=== PATIENT | female | born 1985 | race Caucasian/White ===

== ENCOUNTER 2019-03-26 09:21 | Emergency (ER) | payer MEDICAID, OTHER ==
[~2019-03-26] VITALS: Ht 165.1 cm; Wt 80.0 kg
[~2019-03-26 09:21] MED LIST: GABA100C PO; GUAI474L3 PO; HYDR-4383 PO; MEDR150V IM
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
[2019-03-26] MEDS ORDERED: orphenadrine citrate 60mg/2ml inj. IM ONE (10:55)
[2019-03-26] MEDS ORDERED: HYDR-4353 PO (10:55)
[2019-03-26] MEDS ORDERED: HYDROcodone/acetaminophen 10/325mg tab PO ONE (10:55)
[2019-03-26] MEDS ORDERED: ORPH100T2 PO (10:55)
[2019-03-26 11:24] VITALS: BP 122/64
== END 2019-03-26 11:27 | disposition home or self-care (01) ==
LOC: ER 09:22
DX: S09.90XA Unspecified injury of head, initial encounter (principal); J45.909 Unspecified asthma, uncomplicated; F17.200 Nicotine dependence, unspecified, uncomplicated; F12.10 Cannabis abuse, uncomplicated; Z56.0 Unemployment, unspecified; Z88.0 Allergy status to penicillin; Z86.14 Personal history of Methicillin resistant Staphylococcus aureus infection; Y08.89XA Assault by other specified means, initial encounter; Y93.89 Activity, other specified; Y92.69 Other specified industrial and construction area as the place of occurrence of the external cause; Y99.8 Other external cause status
CPT/HCPCS: 96372; 99283; J2360

== ENCOUNTER 2020-03-07 14:07 | Emergency (ER) | payer MEDICAID, OTHER ==
[~2020-03-07] VITALS: Ht 167.6 cm; Wt 87.0 kg
[~2020-03-07 14:07] MED LIST changes: +ORPH100T2 PO
--- NOTE | 2020-03-07 15:09 | NUR ---
ASSISTED DR LOUISE WITH PELVIC EXAMINE, PT NEHEMIAS WELL, ONE LARGE CLOT REMOVED, MINIMAL BLEEDING
[2020-03-07 15:32] LABS: BASOPHILS # (AUTO) 0.1 X10'3 (0-0.2); BASOPHILS % (AUTO) 0.6 % (0-1); EOSINOPHILS # (AUTO) 0.2 X10'3 (0-0.9); HEMATOCRIT 37.5 % (35.0-45.0); HEMOGLOBIN 12.5 g/dl (12.0-16.0); LYMPHOCYTES # (AUTO) 1.4 X10'3 (1.1-4.8); LYMPHOCYTES % (AUTO) 15.2 % (21-51); MEAN CORPUSCULAR HEMOGLOBIN 28.8 PG (27.0-31.0); MEAN CORPUSCULAR HGB CONC 33.2 g/dL (33.0-36.5); MEAN CORPUSCULAR VOLUME 86.6 FL (78-98); MEAN PLATELET VOLUME 8.2 FL (7.4-10.4); MONOCYTES # (AUTO) 0.6 X10'3 (0-0.9); MONOCYTES % (AUTO) 6.9 % (2-12); NEUTROPHILS # (AUTO) 6.9 X10'3 (1.8-7.7); NEUTROPHILS % (AUTO) 75.3 % (42-75); PLATELET COUNT 286 X10'3 (140-440); RED BLOOD COUNT 4.34 X10'6 (4.20-5.60); RED CELL DISTRIBUTION WIDTH 13.7 % (11.5-14.5); WHITE BLOOD COUNT 9.2 X10'3 (4.5-11.0)
[2020-03-07 16:28] VITALS: BP 130/76
== END 2020-03-07 16:30 | disposition home or self-care (01) ==
LOC: ER 14:08
DX: N93.9 Abnormal uterine and vaginal bleeding, unspecified (principal); R42 Dizziness and giddiness; J45.909 Unspecified asthma, uncomplicated; F12.90 Cannabis use, unspecified, uncomplicated; Z86.69 Personal history of other diseases of the nervous system and sense organs; Z86.14 Personal history of Methicillin resistant Staphylococcus aureus infection; Z98.890 Other specified postprocedural states; Z56.0 Unemployment, unspecified; Z88.0 Allergy status to penicillin; Z88.6 Allergy status to analgesic agent; Z79.899 Other long term (current) drug therapy
CPT/HCPCS: 36415; 84702; 85025; 99283

== ENCOUNTER 2020-09-29 22:59 | Emergency (ER) | payer MEDICAID ==
[~2020-09-29] VITALS: Ht 167.6 cm; Wt 83.6 kg
[2020-09-30 00:04] VITALS: BP 102/66
== END 2020-09-30 01:00 | disposition home or self-care (01) ==
LOC: ER 22:59
DX: R56.9 Unspecified convulsions (principal); J45.909 Unspecified asthma, uncomplicated; F12.90 Cannabis use, unspecified, uncomplicated; Z56.0 Unemployment, unspecified; Z86.14 Personal history of Methicillin resistant Staphylococcus aureus infection; Z88.0 Allergy status to penicillin; Z88.6 Allergy status to analgesic agent; G43.909 Migraine, unspecified, not intractable, without status migrainosus
CPT/HCPCS: 99283

== ENCOUNTER 2021-06-22 09:02 | Emergency (ER) | payer MEDICAID ==
[~2021-06-22] VITALS: Ht 167.6 cm; Wt 83.6 kg
[2021-06-22 09:04] VITALS: BP 116/83
== END 2021-06-22 09:45 | disposition home or self-care (01) ==
LOC: ER 09:03
DX: U07.1 COVID-19 (principal); J06.9 Acute upper respiratory infection, unspecified; B97.89 Other viral agents as the cause of diseases classified elsewhere; J45.909 Unspecified asthma, uncomplicated; F12.90 Cannabis use, unspecified, uncomplicated; Z86.14 Personal history of Methicillin resistant Staphylococcus aureus infection; Z86.69 Personal history of other diseases of the nervous system and sense organs; Z72.89 Other problems related to lifestyle; Z56.0 Unemployment, unspecified; Z88.0 Allergy status to penicillin; Z88.6 Allergy status to analgesic agent; Z79.899 Other long term (current) drug therapy
CPT/HCPCS: 36415; 99283; U0003; U0005

== ENCOUNTER 2022-11-26 20:58 | Emergency (ER) | payer MEDICAID ==
[~2022-11-26] VITALS: Ht 167.6 cm; Wt 80.5 kg
[2022-11-26 21:15] VITALS: BP 139/88
[2022-11-26] MEDS ORDERED: bacitracin 15gm ointment TP ONE (21:40)
== END 2022-11-26 21:59 | disposition home or self-care (01) ==
LOC: ER 20:59
DX: T23.271A Burn of second degree of right wrist, initial encounter (principal); J45.909 Unspecified asthma, uncomplicated; F12.90 Cannabis use, unspecified, uncomplicated; Z86.69 Personal history of other diseases of the nervous system and sense organs; Z86.14 Personal history of Methicillin resistant Staphylococcus aureus infection; Z98.890 Other specified postprocedural states; Z72.89 Other problems related to lifestyle; Z56.0 Unemployment, unspecified; Z88.0 Allergy status to penicillin; Z88.6 Allergy status to analgesic agent; Z79.899 Other long term (current) drug therapy; X08.8XXA Exposure to other specified smoke, fire and flames, initial encounter; Y93.89 Activity, other specified; Y92.89 Other specified places as the place of occurrence of the external cause; Y99.8 Other external cause status
CPT/HCPCS: 16020; 99284; A6258

== ENCOUNTER 2023-11-10 22:30 | Emergency (ER) | payer MEDICAID, OTHER ==
[~2023-11-10] VITALS: Ht 167.6 cm; Wt 81.8 kg
[~2023-11-10 22:30] MED LIST changes: -ORPH100T2 PO; +ORPH100T4 PO
[2023-11-10 22:35] VITALS: BP 152/80; PULSE 90; RESP 17; TEMP 98.7; O2SAT 96
== END 2023-11-10 23:46 | disposition home or self-care (01) ==
LOC: ER 22:31
DX: S33.5XXA Sprain of ligaments of lumbar spine, initial encounter (principal); J45.909 Unspecified asthma, uncomplicated; F17.210 Nicotine dependence, cigarettes, uncomplicated; V89.2XXA Person injured in unspecified motor-vehicle accident, traffic, initial encounter; Y93.89 Activity, other specified; Y92.89 Other specified places as the place of occurrence of the external cause; Y99.8 Other external cause status
CPT/HCPCS: 99282

== ENCOUNTER 2024-03-09 19:34 | Emergency (ER) | payer MEDICAID, OTHER ==
[~2024-03-09] VITALS: Ht 167.6 cm; Wt 75.0 kg
[2024-03-09 19:43] VITALS: BP 164/110; PULSE 81; TEMP 98.4; O2SAT 99
[2024-03-09 21:22] LABS: BASOPHILS # (AUTO) 0.1 X10'3 (0-0.2); BASOPHILS % (AUTO) 0.6 % (0-1); EOSINOPHILS # (AUTO) 0.2 X10'3 (0-0.9); EOSINOPHILS % (AUTO) 2.1 % (0-6); HEMATOCRIT 38.8 % (35.0-45.0); LYMPHOCYTES # (AUTO) 2.3 X10'3 (1.1-4.8); LYMPHOCYTES % (AUTO) 24.9 % (21-51); MEAN CORPUSCULAR HEMOGLOBIN 29.8 PG (27.0-31.0); MEAN CORPUSCULAR HGB CONC 33.5 g/dL (33.0-36.5); MEAN PLATELET VOLUME 8.1 FL (7.4-10.4); MONOCYTES # (AUTO) 0.7 X10'3 (0-0.9); MONOCYTES % (AUTO) 7.2 % (2-12); NEUTROPHILS % (AUTO) 65.2 % (42-75); PLATELET COUNT 268 X10'3 (140-440); RED BLOOD COUNT 4.36 X10'6 (4.20-5.60); RED CELL DISTRIBUTION WIDTH 13.4 % (11.5-14.5); WHITE BLOOD COUNT 9.2 X10'3 (4.5-11.0)
[2024-03-09 21:38] LABS: ALANINE AMINOTRANSFERASE 25 U/L (12-78); ALBUMIN 3.6 G/DL (3.4-5.0); ALBUMIN/GLOBULIN RATIO 0.9 (1.1-1.5); ALKALINE PHOSPHATASE 44 IU/L (46-116); ANION GAP 7 (8-16); ASPARTATE AMINO TRANSFERASE 23 U/L (10-37); BILIRUBIN,TOTAL 0.3 MG/DL (0.1-1.0); BLOOD UREA NITROGEN 13 MG/DL (7-18); BUN/CREATININE RATIO 18.6 (10.0-20.0); CALCIUM 8.8 MG/DL (8.5-10.1); CHLORIDE 102 MMOL/L (99-107); GLUCOSE 82 MG/DL (70-104); LIPASE 22 U/L (16-77); POTASSIUM 3.7 MMOL/L (3.5-5.1); SODIUM 135 MMOL/L (135-145); TOTAL CARBON DIOXIDE 26.5 MMOL/L (24-32); TOTAL PROTEIN 7.4 G/DL (6.4-8.2); eCRCL 100 ML/MIN; eGFR > 90 ML/MIN
[2024-03-09 23:11] LABS: APTT 25 SECONDS (22-32); INR 0.9 INR; PROTHROMBIN TIME 9.8 SECONDS (9.0-12.0)
[2024-03-09 23:13] LABS: BASOPHILS # (AUTO) 0.1 X10'3 (0-0.2); BASOPHILS % (AUTO) 0.6 % (0-1); EOSINOPHILS # (AUTO) 0.2 X10'3 (0-0.9); EOSINOPHILS % (AUTO) 2.5 % (0-6); HEMATOCRIT 41.1 % (35.0-45.0); HEMOGLOBIN 13.9 g/dl (12.0-16.0); LYMPHOCYTES # (AUTO) 2.2 X10'3 (1.1-4.8); LYMPHOCYTES % (AUTO) 24.5 % (21-51); MEAN CORPUSCULAR HEMOGLOBIN 29.7 PG (27.0-31.0); MEAN CORPUSCULAR HGB CONC 33.7 g/dL (33.0-36.5); MEAN CORPUSCULAR VOLUME 88.3 FL (78-98); MONOCYTES # (AUTO) 0.6 X10'3 (0-0.9); MONOCYTES % (AUTO) 6.5 % (2-12); NEUTROPHILS % (AUTO) 65.9 % (42-75); PLATELET COUNT 291 X10'3 (140-440); RED BLOOD COUNT 4.66 X10'6 (4.20-5.60); RED CELL DISTRIBUTION WIDTH 13.1 % (11.5-14.5)
[2024-03-09] MEDS ORDERED: ONDA4TAB12 PO (23:35)
[2024-03-09] MEDS ORDERED: DICY10CA88 PO (23:35)
[2024-03-09] MEDS: normal saline 1000ml 1,000 ML IV ONE (23:42)
[2024-03-09] MEDS: diphenhydrAMINE 50 mg/ml inj IV ONE (23:42)
[2024-03-09] MEDS: metoclopramide 5 mg/ml inj IV ONE (23:42)
[2024-03-09 23:47] VITALS: RESP 16
[2024-03-09] MEDS: HYDROcodone/acetaminophen 5mg/325mg tablet PO ONE (23:47)
[2024-03-09] MEDS: ondansetron/PF 4mg/2ml inj IV ONE (23:47)
== END 2024-03-10 00:54 | disposition home or self-care (01) ==
LOC: ER 19:35
DX: K29.00 Acute gastritis without bleeding (principal); J45.909 Unspecified asthma, uncomplicated; F12.90 Cannabis use, unspecified, uncomplicated; Z88.0 Allergy status to penicillin; Z88.1 Allergy status to other antibiotic agents; Z79.899 Other long term (current) drug therapy
CPT/HCPCS: 36415; 76700; 80053; 80320; 83605; 83690; 85025; 85610; 85730; 87040; 96361; 96374; 99285; J2405; J7030

== ENCOUNTER 2025-06-19 02:26 | Emergency (ER) | payer MEDICAID, OTHER ==
[~2025-06-19] VITALS: Ht 165.1 cm; Wt 81.8 kg
[~2025-06-19 02:26] MED LIST changes: +ONDA-243 PO
[2025-06-19 02:27] VITALS: BP 165/101; PULSE 120; RESP 18; TEMP 98; O2SAT 94
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
== END 2025-06-19 03:27 ==
LOC: ER 02:26
DX: Z65.3 Problems related to other legal circumstances (principal); J45.909 Unspecified asthma, uncomplicated; Z88.0 Allergy status to penicillin; Z88.6 Allergy status to analgesic agent; Z88.8 Allergy status to other drugs, medicaments and biological substances; V43.52XA Car driver injured in collision with other type car in traffic accident, initial encounter; Y93.89 Activity, other specified; Y92.89 Other specified places as the place of occurrence of the external cause; Y99.8 Other external cause status
CPT/HCPCS: 99283

== ENCOUNTER 2025-09-04 22:50 | Emergency (ER) | payer OTHER ==
[~2025-09-04] VITALS: Ht 167.6 cm; Wt 80.0 kg
[2025-09-04 23:15] VITALS: BP 126/90; PULSE 76; RESP 18; O2SAT 97
--- NOTE | 2025-09-04 23:27 | Physician Documentation ---
History of Present Illness ~ Chief Complaint: Eye Pain Stated Complaint: R EYE PAIN Time Seen by MD: 23:21 OK to notify your PCP?: Yes Primary Medical Doctor: NONE Source: patient Mode of Arrival: POV Exam Limitations: no limitations HPI Reports she felt a particle fallen to her right eye a few days ago and she flushed her eye out with saline flush at home. She reports that she was staying in a hotel the night prior. She reports that this morning she woke up and her eye was crusted shut. Reports occasional blurry vision in this eye. No symptoms with the left eye. Medication Reconciliation Allergies: Coded Allergies: Penicillins (Unverified Allergy, Unknown, 06/19/25) ibuprofen (Unverified Allergy, Unknown, 06/19/25) Scheduled Ciprofloxacin Hcl Ophth* (Ciloxan 0.35 Ophth Drops*), 1 DROP RIGHTEYE Q6H Gabapentin (Neurontin), 1 CAP PO BID, (Reported) Hydrocodone/Acetaminophen ([place] 5-325 Tablet), 1 TAB PO Q6H Medroxyprogesterone Acetate (Depo-Provera), 150 MG IM [id number], (Reported) Orphenadrine Citrate (Norflex), 1 TAB PO Q12H PRN Scheduled PRN Guaifen/D-Methorphan Hb/K Cit (Sorbutuss Liquid), 5 ML PO Q4H PRN for cough ONDANSETRON ODT 4mg tablet (Ondansetron Odt), 1 TAB PO Q6H PRN PRN for nausea/vomiting Past Medical History Past Medical History: Seizures, Asthma, MRSA Abscess Past Surgical History: other Alcohol Use: Occasionally Drug Use: marijuana Lives with: Family Lives In: Home Occupation: unemployed Physical Exam Vital Signs: RN Vital Signs have been reviewed: Yes, Temperature: 97.3, Source: Temporal, Heart Rate: 76, Respiratory Rate: 18, BP: 126/90, Pulse Oximetry: 97, Weight: 80.000 Pulse Oximetry Reflects: adequate oxygenation Physical Exam General: Alert, no distress. HEENT: moist mucous membranes. Conjunctiva injected with white stringy thing drainage present on eyelashes. Fluorescein uptake to lateral portion of right eye in the 9 o'clock position. PERRLA, EOMI. Neck: Full range of motion. Respiratory: No respiratory distress, equal chest rise and fall. Chest: No accessory muscle use. Cardiovascular: Regular rate and rhythm. Gastrointestinal: Nondistended. Extremities: Normal range of motion, no deformity. Neurologic: Oriented x4. Psychiatric: Normal mood and affect. Skin: Normal color, warm and dry. 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 Proparacaine Ophth Solution (Alcaine Oph (09/04/25 23:55) Fluorescein 1mg Ophthal Strip (Ful-Sheron O (09/04/25 23:55) Medications Received in ER Medications (Trade) Dose Ordered Sig/Kamar Route PRN Reason Start Time Stop Time Status Last Admin Dose Admin (Alcaine ophth solution) 2 drop ONCE ONCE EACHEYE 09/04/25 23:55 09/04/25 23:56 DC 09/04/25 23:57 2 DROP (Ful-Sheron ophth strip) 1 mg ONCE ONCE RIGHTEYE 09/04/25 23:55 09/04/25 23:56 DC 09/04/25 23:57 1 MG Vital Signs 09/04/25 23:15 Temp 97.3 Pulse 76 Resp 18 B/P (MAP) 126/90 Pulse Ox 97 Medical Decision Making Additional information obtaine: old records Findings Positive fluorescein uptake to the lateral portion of her right eye. Prescribed ciprofloxacin drops which were sent to her pharmacy. Her dated her eye with normal saline and removed a lot of white stringy discharge. Patient reports her eye is feeling better after the proparacaine drops and her vision has cleared up after the irrigation. No foreign body seen on exam Ear Diff. Dx: Considerations: Include: Other Eye Diff. Dx: Considerations: Include: Conjuctivits-allergic, Conjuctivitis- bacterial, Conjuctivits-chlamydial, Conjuctivitis-viral, Corneal abrasion, Corneal ulceration, Foreign body-conjuctiva, Foreign body-corneal, Foreign body- intraocular, Foreign body-lid, Rust ring, Subconjunctival hem Nose Diff. Dx: Considerations: Include: Other Tooth Diff. Dx: Considerations: Include: Other Throat Diff Dx: Considerations: Include: Other Departure Disposition: 01 HOME / SELF CARE / HOMELESS Impression: Primary Impression: Corneal abrasion Condition: Stable Discharge Instructions: Corneal Abrasion Additional Instructions: Take antibiotics as prescribed. Return back here for any new or worsening symptoms. Follow up with your primary care provider or eye doctor in the next week if there was no improvement. Referrals: NO PRIMARY CARE PROVIDER (PCP) Prescriptions Ciprofloxacin Hcl Ophth* (Ciloxan 0.35 Ophth Drops*) 2.5 Ml Bottle 1 DROP RIGHTEYE Q6H for 7 Days, #5 ML Prov: RAJENDRA ENG 09/04/25 Education Educated: Patient Educated regarding: diagnosis, treatment, prognosis, need for follow up Additional Comment Medical Screen Exam This patient recieved a medical screening examination. After reviewing the individual's medical complaints with presenting symptoms and performing an appropriate physical examination, it was determined that no immediate life- threatening emergency medical condition is present. This individual is also not a women having contractions. Signature Scribe Signature: . Attestation: Scribed for Emergency,Department by Rajendra Eng - MILAGROS . 09/04/25 23:31 Parts of this note were created using [employer] voice recognition software program. While efforts were made to correct any mistakes made by this voice recognition software program, nonsensical phrases may remain in this note. In addition, there may be errors and syntax, grammar, content and spelling. RAJENDRA ENGP Sep 04, 2025 23:27
[2025-09-04] MEDS ORDERED: CIPR2.5D21 RIGHTEYE (23:33)
[2025-09-04] MEDS: proparacaine 0.5% ophthalmic drops 15ml EACHEYE ONE (23:57)
[2025-09-04] MEDS: fluorescein sod 1mg ophthalmic strip RIGHTEYE ONE (23:57)
[2025-09-05 00:38] VITALS: TEMP 97.3
== END 2025-09-05 00:05 | disposition home or self-care (01) ==
LOC: ER 22:50
DX: S05.01XA Injury of conjunctiva and corneal abrasion without foreign body, right eye, initial encounter (principal); F12.90 Cannabis use, unspecified, uncomplicated; Z88.0 Allergy status to penicillin; Z88.6 Allergy status to analgesic agent; Z86.14 Personal history of Methicillin resistant Staphylococcus aureus infection; Z79.899 Other long term (current) drug therapy; Z72.89 Other problems related to lifestyle; Z56.0 Unemployment, unspecified; X58.XXXA Exposure to other specified factors, initial encounter; Y93.89 Activity, other specified; Y92.89 Other specified places as the place of occurrence of the external cause; Y99.8 Other external cause status
CPT/HCPCS: 99283; J3490